=== PATIENT | female | born 1990 | race Caucasian/White ===

== ENCOUNTER 2024-04-06 07:57 | Emergency (ER) | payer OTHER ==
[~2024-04-06] VITALS: Ht 165.1 cm; Wt 95.3 kg
[2024-04-06 08:45] VITALS: BP 117/69; PULSE 98; RESP 16; TEMP 98; O2SAT 100
[2024-04-06 09:49] LABS: Urine Bacteria None Seen /hpf (None Seen)
[2024-04-06 10:16] LABS: Urine Blood Negative /uL (Negative); Urine Clarity Clear (Clear); Urine Color Yellow (Yellow); Urine Protein, UAD Negative (Negative); Urine Specific Gravity 1.008 (1.001-1.035); Urine Urobilinogen Normal (Negative); Urine WBC 5 /hpf (0 - 5); Urine pH 5.5 (5.0-9.0)
== END 2024-04-06 10:09 | disposition home or self-care (01) ==
LOC: ER 07:57
DX: R33.9 Retention of urine, unspecified (principal); Z90.710 Acquired absence of both cervix and uterus; Z98.890 Other specified postprocedural states
CPT/HCPCS: 51702; 81001